=== PATIENT | male | born 1955 | race Hispanic/Latino ===

== ENCOUNTER 2024-11-24 11:02 | Observation (INO) | payer BC, MEDICARE ==
[2024-11-24] VITALS (7 sets, daily range): BP systolic 115–128; BP diastolic 64–86; PULSE 63–80; RESP 12–19; TEMP 98–98.3; O2SAT 100
[~2024-11-24] VITALS: Ht 172.7 cm; Wt 63.5 kg
[2024-11-24] MEDS ORDERED: SODIUM CHLORIDE FLUSH 10 ML SYR IV PRN (12:00)
[2024-11-24 12:14] LABS: BASOPHILS % 0.4 % (0.0-1.0); EOSINOPHILS % 2.6 % (0.0-6.0); LYMPHOCYTES % 28.7 % (18.0-39.1); MONOCYTES % 10.0 % (4.4-11.3); NEUTROPHILS % 58.0 % (38.7-80.0); RED CELL DISTRIBUTION WIDTH 14.5 % (11.7-14.4)
[2024-11-24 13:14] LABS: EST GLOMERULAR FILTRATION RATE 96.0 ML/MIN (>=60)
[2024-11-24] MEDS ORDERED: SODIUM CHLORIDE FLUSH 10 ML SYR INJ PRN (14:30)
[2024-11-24] MEDS ORDERED: ONDANSETRON HCL INJ 2MG/ML 2ML 2 MG/ML VIAL IV PRN (14:30)
[2024-11-24] MEDS ORDERED: ROSUVASTATIN CAL5 MG (15:17)
[2024-11-24] MEDS ORDERED: POTASSIUM CHLORIDE 20 MEQ TAB CR PO PRN (17:15)
[2024-11-24] MEDS ORDERED: ALBUTEROL/IPRATROPIUM 3 ML NEB NEB PRN (17:15)
[2024-11-24] MEDS ORDERED: SIMETHICONE 80 MG CHEW PO PRN (17:15)
[2024-11-24] MEDS ORDERED: HYDRALAZINE HCL 20 MG/ML VIAL IV PRN (17:15)
[2024-11-24] MEDS ORDERED: DIPHENHYDRAMINE HCL 25 MG CAP PO PRN (17:15)
[2024-11-24] MEDS ORDERED: DEXTROSE 50% SYRINGE 50 ML IV PRN (17:15)
[2024-11-24] MEDS ORDERED: DOCUSATE SODIUM 100 MG CAP PO PRN (17:15)
[2024-11-24] MEDS ORDERED: LIDOCAINE 4% PATCH TP PRN (17:15)
[2024-11-24] MEDS ORDERED: MELATONIN 5 MG TABLET PO PRN (17:15)
[2024-11-24] MEDS ORDERED: BENZONATATE 100 MG CAP PO PRN (17:15)
[2024-11-24] MEDS ORDERED: ACETAMINOPHEN 325 MG TAB PO PRN (17:15)
[2024-11-24] MEDS: SODIUM CHLORIDE 0.9% 1000ML 1,000 ML IV SCH (18:45)
[2024-11-25] VITALS (15 sets, daily range): BP systolic 111–142; BP diastolic 69–96; PULSE 62–82; RESP 16–20; TEMP 97.8–98.8; O2SAT 100
[2024-11-25 04:48] LABS: LEUKOCYTE ESTERASE ,URINE NEGATIVE (NEGATIVE); PROTEIN,URINE DIPSTICK NEGATIVE (NEGATIVE)
[2024-11-25 04:49] LABS: URINE UROBILINOGEN 0.2 mg/dL (0.2 - 1)
[2024-11-25 05:12] LABS: EPITHELIAL CELLS,URINE FEW /LPF; WBC,URINE (MAN) 0-5 /HPF (0-5)
[2024-11-25 05:49] LABS: BASOPHILS % 0.5 % (0.0-1.0); EOSINOPHILS % 4.5 % (0.0-6.0); LYMPHOCYTES % 35.1 % (18.0-39.1); MONOCYTES % 12.1 % (4.4-11.3); NEUTROPHILS % 47.5 % (38.7-80.0); RED CELL DISTRIBUTION WIDTH 14.6 % (11.7-14.4)
[2024-11-25 06:17] LABS: EST GLOMERULAR FILTRATION RATE 97.0 ML/MIN (>=60)
[2024-11-25 06:40] LABS: CHOL/HDL RATIO 3.2 (3.9-4.7); LDL CHOLESTEROL 109.0 MG/DL (60-130); PHOSPHORUS 2.5 MG/DL (2.3-4.7)
[2024-11-25] MEDS: PANTOPRAZOLE SOD 40 MG TABEC PO SCH (09:08)
[2024-11-25] MEDS ORDERED: AMOXICILLIN/CLAVULANATE K 875 MG TAB PO SCH (13:15)
[2024-11-25] MEDS: ENOXAPARIN SOD INJ 40 MG/0.4 ML SYR SC SCH (16:13)
[2024-11-26 04:00] VITALS: BP 137/77; PULSE 86; RESP 18; TEMP 97.8; O2SAT 100
[2024-11-26 07:11] LABS: EST GLOMERULAR FILTRATION RATE 98.0 ML/MIN (>=60)
[2024-11-26 08:00] VITALS: BP 126/78; PULSE 68; RESP 18; TEMP 97.5; O2SAT 100
[2024-11-26 08:24] VITALS: PULSE 72; RESP 16; O2SAT 96
[2024-11-26] MEDS: FLUTICASONE PROPIONATE NASAL SPRAY NS SCH (08:34)
[2024-11-26 09:53] VITALS: BP 126/78; PULSE 72; RESP 16; TEMP 97.5; O2SAT 96
[2024-11-26 11:00] VITALS: BP 131/73; PULSE 64; RESP 18; TEMP 98; O2SAT 100
== END 2024-11-26 11:50 | disposition home or self-care (01) ==
LOC: ER 11:43 → ERHOLD 14:30 → MED/SURG 15:07 → MED/SURG2 11-25 18:12
PROVIDERS: ADMIT Internal Medicine; ATTEND Internal Medicine
DX: I95.1 Orthostatic hypotension (principal); E78.5 Hyperlipidemia, unspecified; J01.40 Acute pansinusitis, unspecified; J32.4 Chronic pansinusitis; R91.1 Solitary pulmonary nodule
CPT/HCPCS: 36415 ×3; 70450; 71045; 80048; 80053 ×2; 80061; 81001; 82550 ×2; 83036; 83735; 83880; 84100; 84443; 84484 ×2; 85025 ×2; 87086; 93005 ×2; 93306; 93880; 94760; 94799 ×2; 97161; 99284; G0378 ×3; J0696 ×2; J2470 ×2; J7030 ×3; J1650